=== PATIENT | female | born 1980 | race Hispanic/Latino ===

== ENCOUNTER → 2018-03-06 | Outpatient (REF) | payer OTHER ==
[~2018-03-06] MED LIST: AUGM875T28 PO; FLON1SPR NARES; IBUP-1114 PO; PSEU30TA21 PO
== END ==
LOC: M SFHCLERA 11:44
PROVIDERS: ATTEND Nurse Practitioner Family
DX: J01.90 Acute sinusitis, unspecified (principal)

== ENCOUNTER 2018-03-08 08:56 | Emergency (ER) | payer OTHER ==
[~2018-03-08] VITALS: Ht 175.3 cm; Wt 78.6 kg
[2018-03-08] MEDS ORDERED: PSEU30TA21 PO (09:08)
[2018-03-08] MEDS ORDERED: FLON1SPR NARES (09:08)
[2018-03-08] MEDS ORDERED: IBUP-1114 PO (09:08)
--- NOTE | 2018-03-08 09:57 | REP ---
Clinical: Swelling. Technique: Axial noncontrast images through the facial bones to include the mandible with coronal and sagittal re-formations. Findings: The osseous structures are intact and there is no evidence for fracture or dislocation. Specifically, the bilateral zygomatic arches, nasal bones, and mandible including bilateral temporomandibular joints appear normal and symmetric. The sinuses and mastoid air cells are all well aerated and clear without fluid level to suggest occult trauma. The bilateral orbits including the globes and intraconal contents appear symmetric and normal. The surrounding soft tissues are grossly unremarkable. Impression: Normal maxillofacial CT. No evidence for acute pathology or sinus disease. Electronically Signed by Yonathan Arreola MD 03/08/2018 09:49 A
[2018-03-08] MEDS ORDERED: AUGM875T28 PO (10:10)
[2018-03-08 10:16] VITALS: BP 114/71
== END 2018-03-08 10:17 | disposition home or self-care (01) ==
LOC: M ED 08:56
DX: R22.0 Localized swelling, mass and lump, head (principal)

== ENCOUNTER → 2018-10-28 | Outpatient (CLI) | payer OTHER ==
--- NOTE | 2018-10-28 12:51 | REP ---
BILATERAL MAMMOGRAM WITH RIGHT BREAST ULTRASOUND: HISTORY: Right nipple discharge, white and foul-smelling for the past 2 months with pain upper outer quadrant right breast. MLO and CC views of bilateral breasts performed. There are no prior studies for comparison. No family history of breast cancer. Tyrer-zi lifetime risk of breast cancer 12.1%. Dense fibroglandular tissue is seen bilaterally in a heterogeneous pattern. No discrete mass or architectural distortion is seen. No clustered microcalcifications are seen. Real-time sonographic evaluation of right retroareolar region performed to evaluate for possible ductal abnormality as a reason for right nipple discharge. Ultrasound also performed of the upper outer quadrant of the right breast where there is pain. No discrete cystic or solid nodule is seen in these regions. Dense fibroglandular tissue is seen. IMPRESSION: BIRADS 2: BI-RADS/ACR category 2 mammogram. Benign Findings. ACR 2 benign. No mass or clustered microcalcifications. Dense breast parenchyma limits the sensitivity of the mammogram. No sonographic abnormality in the right retroareolar region or upper outer quadrant of the right breast. Clinical correlation and followup recommended. This mammogram was interpreted with the aid of an FDA-approved computer-aided detection system. The patient states that she or he has not had a clinical breast exam in over a year. The patient letter being requested is M2. Electronically Signed by Blu Thakkar MD 10/30/2018 10:51 P
== END ==
LOC: M RAD 10:45
PROVIDERS: ATTEND Physician Assistant Medical
DX: N64.52 Nipple discharge (principal)

== ENCOUNTER → 2018-11-18 | Outpatient (REF) | payer OTHER ==
[2018-11-23 00:06] LABS: HPV HYBRID CAPTURE II Negative (Negative)
== END ==
LOC: M SFHCWAGY 08:43
PROVIDERS: ATTEND Nurse Practitioner Women's Health
DX: Z12.4 Encounter for screening for malignant neoplasm of cervix (principal)
CPT/HCPCS: 87624; G0123; G0463

== ENCOUNTER → 2019-03-29 | Outpatient (REF) | payer OTHER | LOC: M SFHCWAGY 16:56 | PROVIDERS: ATTEND Nurse Practitioner Women's Health | DX: N90.89 Other specified noninflammatory disorders of vulva and perineum (principal) ==

== ENCOUNTER 2019-08-30 13:01 | Emergency (ER) | payer OTHER, BC ==
[~2019-08-30] VITALS: Ht 175.3 cm; Wt 83.2 kg
[2019-08-30 13:30] LABS: HEMATOCRIT 37.9 % (36.0-47.0); HEMOGLOBIN 12.4 g/dl (12.0-15.5); MEAN CORPUSCULAR HEMOGLOBIN 30.4 pg (27.0-33.0); MEAN CORPUSCULAR HGB CONC 32.7 g/dl (32.0-36.5); MEAN CORPUSCULAR VOLUME 92.9 fl (80.0-96.0); PLATELET COUNT, AUTOMATED 212 10^3/uL (150-450); RED BLOOD COUNT 4.08 10^6/uL (4.00-5.40); WHITE BLOOD COUNT 6.8 10^3/uL (4.0-10.0)
[2019-08-30 13:42] LABS: INR 1.1; PROTHROMBIN TIME 13.9 SECONDS (11.8-14.0)
[2019-08-30 13:43] LABS: PARTIAL THROMBOPLASTIN TIME 32.4 SECONDS (25.0-38.4)
[2019-08-30 14:05] LABS: EOSINOPHILS 1 % (0-3); LYMPHOCYTES 40 % (16-44); MONOCYTES 5 % (0-5); NEUTROPHILS 54 % (28-66); PLATELET ESTIMATE NORMAL (NORMAL)
[2019-08-30 14:16] LABS: BLOOD UREA NITROGEN 4 MG/DL (7-18); CALCIUM LEVEL 8.9 MG/DL (8.5-10.1); CARBON DIOXIDE LEVEL 29 MEQ/L (21-32); CHLORIDE LEVEL 105 MEQ/L (98-107); CREATININE FOR GFR 0.76 MG/DL (0.55-1.30); FREE T4 0.91 NG/DL (0.76-1.46); GLOMERULAR FILTRATION RATE > 60.0 (>60); GLUCOSE, FASTING 93 MG/DL (70-100); POTASSIUM SERUM 3.9 MEQ/L (3.5-5.1); SODIUM LEVEL 135 MEQ/L (136-145)
[2019-08-30 14:46] VITALS: BP 122/74
--- NOTE | 2019-08-30 14:55 | REP ---
Portable chest x-ray: Single view. History: Chest pain. Findings: Monitoring electrodes overlie the chest. Lungs are well inflated and pulmonary vasculature is not increased. Pleural angles are sharp. No infiltrate is seen. No significant bony abnormality. Impression: Negative portable chest x-ray. Electronically Signed by Saran Cruz MD 08/30/2019 02:46 P
--- NOTE | 2019-08-30 20:30 | ECGEPIP ---
[facility] - ED Test Date: 2019-08-30 Pat Name: SAMANTHA FERRERA Department: Room: - Gender: Female [employer] Work[employer]: yamil : 1980 Requested By: PEDRO LUIS Castelan Order Number: [id number] Reading MD: Nii Sullivan Measurements Intervals [place] Rate: 73 P: 11 VT: 146 QRS: 74 QRSD: 92 T: 45 QT: 388 QTc: 430 Interpretive Statements SINUS RHYTHM POOR R WAVE PROGRESSION NO PRIORS FOR COMPARISON Electronically Signed on 08-30-2019 20:29:45 EDT by Nii Sullivan
== END 2019-08-30 14:57 | disposition home or self-care (01) ==
LOC: M ED 13:01
DX: F43.0 Acute stress reaction (principal); F17.200 Nicotine dependence, unspecified, uncomplicated